=== PATIENT | female | born 1995 | race Caucasian/White ===

== ENCOUNTER 2020-11-06 09:23 | Emergency (ER) | payer BC, MEDICAID, SELFPAY ==
[2020-11-06 09:28] VITALS: BP 119/66; PULSE 87; RESP 16; TEMP 36.8; O2SAT 99; BMI 19.0
--- NOTE | 2020-11-06 09:38 | W.ED.DENTAL ---
HPI - Dental/Oral General: Chief complaint: Dental/Oral Stated complaint: Dental pain Time Seen by Provider: 11/06/20 09:28 History of Present Illness: HPI Narrative: Patient is a 25-year-old female who comes to the ED for dental pain. Patient says pain started yesterday and it is located in the right upper molar. She has a scheduled dental appointment in December. Patient rates her dental pain a 10 out of 10. She says she has had problems with her teeth in the past. Patient's drug counselor is also present. She needs to be restarted on her psych meds and is requesting a test before starting her back on her meds. Associated symptoms: Denies fever(s) or odynophagia Review of Systems Const: Denies: fever(s), chills or fatigue Eyes: Denies: change in vision or eye discomfort ENMT: Reports: dental pain (Right upper molars.); Denies: throat pain, odynophagia, nasal discharge or nasal congestion Card: Denies: chest pain, palpitations, edema, swelling of feet/ankles, dyspnea on exertion or orthopnea Resp: Denies: dyspnea, productive cough or non-productive cough GI: Denies: abdominal pain, nausea, vomiting, diarrhea, constipation or hematochezia : Denies: flank pain, dysuria or hematuria Musc: Denies: neck pain, back pain or extremity swelling Skin/Breast: Denies: rash or new lesions Neuro: Denies: headache(s), numbness in extremities or weakness in extremities [facility] Female Reproductive History: Date of last menstrual period: 08/04/20 Physical Exam Const: COMMON NORMALS: no acute distress, patient oriented x3 and alert GENERAL APPEARANCE: cooperative and comfortable HENMT: COMMON NORMALS: normocephalic HEAD & SCALP: normocephalic MOUTH: Normal oral and palatal mucosa present TEETH & GINGIVA: Yes caries (Extensive dental caries seen on teeth 1 and 2.) and Yes gingiva abnormal edematous (Around tooth #1.) THROAT: posterior oropharynx normal and uvula midline Neck/C-Spine: COMMON NORMALS: supple GENERAL: Yes normal visual inspection Resp: COMMON NORMALS: normal respiratory effort, No retractions, No use of accessory muscles and clear to auscultation bilaterally AUSCULTATION: clear to auscultation bilaterally Cardio: COMMON NORMALS: regular rate, regular rhythm, S1 normal heart sound present, S2 normal heart sound present, No gallops present (Cardio), No clicks present (Cardio), No murmurs present (Cardio) and Peripheral pulses 2+ throughout RATE: regular rate RHYTHM: regular rhythm HEART SOUNDS: S1 normal heart sound present and S2 normal heart sound present PERIPHERAL PULSES: Peripheral pulses 2+ throughout GI: COMMON NORMALS: Normal to inspection, nondistended, normoactive bowel sounds present, Soft to palpation, non-tender and no masses PALPATION: Yes Soft to palpation : COMMON NORMALS: Yes no CVA tenderness BLADDER/KIDNEY EXAM: Yes no CVA tenderness Back/Pelvis: COMMON NORMALS: no CVA tenderness Extremity: COMMON NORMALS: normal to inspection Neuro: COMMON NORMALS: patient oriented x3 and moves all extremities SENSORIUM/ORIENTATION: Yes alert Skin: GENERAL SKIN EXAM: dry skin Course Vital Signs: Vital signs: Vital Signs Temperature 98.2 F 11/06/20 09:28 Pulse Rate 79 11/06/20 10:40 Respiratory Rate 18 11/06/20 10:40 Blood Pressure 115/65 11/06/20 10:40 Pulse Oximetry 100 11/06/20 10:40 MDM - Dental/Oral MDM Narrative: Medical decision making narrative: Patient is a 25-year-old female comes to the ED with dental pain. Patient is also wanting a test due to currently being in drug treatment program and needing to be started back up on psych meds. Exam shows patient is healthy and in no acute distress and is nontoxic. She does have extensive dental caries molars 1 and 2 with some surrounding gingival edema. hCG is negative. Patient diagnosed with dental caries. Patient was given dose of clindamycin while here in the ED and discharged with prescription for clindamycin and ibuprofen 800s. Patient has a scheduled appointment with her dentist in December. Return to ED precautions given. Patient understood agree with plan. Lab Data: Labs: Lab Results 11/06/20 Range/Units 09:48 HCG, Qual Negative (Negative) Discharge Plan Discharge Patient Disposition: Home Clinical Impression: Pain due to dental caries Condition: Stable Prescriptions: New clindamycin HCl 150 mg capsule 300 mg PO QID 7 Days Qty: 56 RF: 0 ibuprofen 800 mg tablet 800 mg PO Q8H Qty: 30 RF: 0 Discharge Orders: Discharge ED (Routine); Ordered 11/06/20 Ordered By: Lobito Kumar Discharge Diet: Regular Discharge Activity: Resume usual activity Patient Instructions: Dental Caries (ED) Activity Restrictions/Additional Instructions: Follow-up with your dentist at your scheduled appointment in December. Take medications as prescribed. Return to the ER or your medical provider if condition worsens. Please read and understand discharge instructions. If any questions, please ask. 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
[2020-11-06] MEDS: acetaminophen 500 mg Tablet 1000 MG PO (10:08)
[2020-11-06 10:09] LABS: HCG, Serum Qual Negative (Negative)
[2020-11-06] MEDS: clindamycin 150 mg Capsule 300 MG PO (10:38)
[2020-11-06 10:40] VITALS: BP 115/65; PULSE 79; RESP 18; O2SAT 100
== END 2020-11-06 10:39 | disposition home or self-care (01) ==
PROVIDERS: Emergency Provider Physician Assistant
DX: K02.9 Dental caries, unspecified (principal)
CPT/HCPCS: 84703; 99283

== ENCOUNTER 2020-11-13 11:50 | Emergency (ER) | payer BC, MEDICAID, SELFPAY ==
[2020-11-13 12:20] VITALS: BMI 20.1
--- NOTE | 2020-11-13 12:44 | XR_ITS ---
WS: [id number] Chest with right rib detail, 11/13/2020 Clinical Data: right rib pain Comparison: None. Findings: The lungs show no nodules, masses, or effusions. The heart is normal. No pneumonia or pneumothorax is seen. The ribs are intact. No rib fractures seen. No subcutaneous emphysema is present. XR/XR ribs RT mn 3V w [id number] Impression: Negative chest with right rib detail.
[2020-11-13 13:41] LABS: HCG Qualitative Urine. Negative (Negative)
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
[2020-11-13 14:21] VITALS: BP 105/61; PULSE 63; RESP 16; O2SAT 100
[2020-11-13 15:30] LABS: HIV 1 & 2 Antibody Non-Reactive (Non-Reactiv); HIV 1 & 2 Antigen Non-Reactive (Non-Reactiv)
[2020-11-13] MEDS: azithromycin 250 mg Tablet 1000 MG PO (16:07)
[2020-11-13 16:40] VITALS: BP 119/70; PULSE 80; RESP 16
== END 2020-11-13 16:42 | disposition home or self-care (01) ==
PROVIDERS: Emergency Provider Family Medicine
DX: N89.8 Other specified noninflammatory disorders of vagina (principal); Z72.51 High risk heterosexual behavior
CPT/HCPCS: 36415; 71101; 81025; 87081; 87210; 87491; 87591; 87806; 96372; 99283; J0696; Q0144